=== PATIENT | male | born 1980 | race Caucasian/White ===

== ENCOUNTER 2018-02-10 13:16 | Emergency (ER) | payer OTHER ==
[~2018-02-10] VITALS: Ht 167.6 cm; Wt 81.0 kg
[2018-02-10 13:16] VITALS: BP 119/71
[2018-02-10] MEDS ORDERED: HYDR-971 PO (14:07)
[2018-02-10] MEDS ORDERED: HYDR30CR61 TP (14:07)
--- NOTE | 2018-02-10 14:08 | PHYS DOC ---
Adult General Chief Complaint Chief Complaint: HEMORRHOIDS HPI HPI 38-year-old male presents with a painful hemorrhoid. He states he first noticed it yesterday. He states the pain last night was severe enough where he was not able to sleep. In the past he's had to have these lanced. He denies any other issues at this time.[] Review of Systems Review of Systems Constitutional: Denies fever or chills [] Eyes: Denies change in visual acuity, redness, or eye pain [] HENT: Denies nasal congestion or sore throat [] Respiratory: Denies cough or shortness of breath [] Cardiovascular: No additional information not addressed in HPI [] GI: Per history of present illness[] : Denies dysuria or hematuria [] Musculoskeletal: Denies back pain or joint pain [] Integument: Denies rash or skin lesions [] Neurologic: Denies headache, focal weakness or sensory changes [] Endocrine: Denies polyuria or polydipsia [] All other systems were reviewed and found to be within normal limits, except as documented in this note. Physical Exam Physical Exam Constitutional: Well developed, well nourished, mild to moderate distress, non- toxic appearance. [] HENT: Normocephalic, atraumatic, bilateral external ears normal, oropharynx moist, no oral exudates, nose normal. [] Eyes: PERRLA, EOMI, conjunctiva normal, no discharge. [] Neck: Normal range of motion, no tenderness, supple, no stridor. [] Cardiovascular:Heart rate regular rhythm, no murmur [] Lungs & Thorax: Bilateral breath sounds clear to auscultation [] Abdomen: Bowel sounds normal, soft, no tenderness, no masses, no pulsatile masses. [] Rectal: Large non-thrombosed hemorrhoid external Skin: Warm, dry, no erythema, no rash. [] Back: No tenderness, no CVA tenderness. [] Extremities: No tenderness, no cyanosis, no clubbing, ROM intact, no edema. [] Neurologic: Alert and oriented X 3, normal motor function, normal sensory function, no focal deficits noted. [] Psychologic: Anxious. [] EKG EKG [] Radiology/Procedures Radiology/Procedures [] Course & Med Decision Making Course & Med Decision Making Pertinent Labs and Imaging studies reviewed. (See chart for details) [ED course: Evaluation reveals a 38-year-old male with a nonthrombosed external hemorrhoid. I explained to the patient that given the current state of that hemorrhoid it would not be in his best interest for me to cut that at this time. I have instructed him to follow with a general surgeon who can help him get that taken care of in the meantime we'll start him on Anusol HC and some pain medication.] Dragon Disclaimer Dragon Disclaimer This electronic medical record was generated, in whole or in part, using a voice recognition dictation system. Departure Departure: Impression: Primary Impression: External hemorrhoid Disposition: HOME, SELF-CARE Condition: STABLE Referrals: PALAK MEDLEY (PCP) TACOS VARMA MD Make an appointment with Dr. Varma as he will be able to help you with your hemorrhoid Patient Instructions: Hemorrhoidectomy, Hemorrhoids Additional Instructions: Follow with a general surgeon to have this surgically repaired in the very near future. Scripts Hydrocodone Bit/Acetaminophen (NORCO 5-325 TABLET) 1 Each Tablet 1-2 TAB PO Q4-6HRS for PAIN, #20 TAB Prov: YOANNA RAND DO 02/10/18 Hydrocortisone (ANUSOL-HC) 30 Gm Cream..g. 1 MYAH TP BID, #30 GM 1 Refill Prov: YOANNA RAND DO 02/10/18 YOANNA RAND DO Feb 10, 2018 14:08
== END 2018-02-10 14:22 | disposition home or self-care (01) ==
LOC: ER 13:16
DX: K64.4 Residual hemorrhoidal skin tags (principal)
CPT/HCPCS: 99283

== ENCOUNTER → 2021-01-07 | Outpatient (CLI) | payer OTHER ==
[~2021-01-07] MED LIST: HYDR-3165 PO; HYDR30CR61 TP; IOHEXOL 300 MG/ML 75 ML VIAL. IV ONE
--- NOTE | 2021-01-07 14:33 | RAD ---
EXAMINATION: CT ABDOMEN+PELVIS WO+W (CT ABDOMEN/PELVIS WITHOUT AND WITH IV CONTRAST, INCLUDING EXCRET ORY PHASE IMAGING (CT UROGRAM)) CLINICAL HISTORY: Gross hematuria Hematuria. TECHNIQUE: CT urogram protocol including unenhanced, renal parenchymal phase and excretory phase scott l imaging was obtained following intravenous contrast. 3D post-processing/reconstructions also perfor med. CT Dose Reduction Employed: One or more of the following individualized dose reduction techniques wer e utilized for this examination: 1. Automated exposure control 2. Adjustment of the mA and/or kV ac cording to patient size 3. Use of iterative reconstruction technique. COMPARISON: None FINDINGS: KIDNEYS AND URINARY TRACT: Right: Partially obstructive 8 mm calculus in the proximal right ureter with mild upstream hydrourete ronephrosis. Additional nonobstructive renal calculi measuring up to 4 mm. 1 cm cortical cyst in the mid to lower pole of the right kidney. Normal opacification of the calyces, renal pelvis, and ureter. Left: Tiny nonobstructive calculi. Opacified calyces, renal pelvis, and ureter unremarkable with no e vidence of dilation, filling defect, or stricture. Bladder: No evidence of filling defect, calculus, or wall thickening. ABDOMEN AND PELVIS: Partially visualized heart and lung bases unremarkable. Several small hypodense foci in the liver, too small adequately characterize but likely benign. Gallb ladder, pancreas, spleen, and adrenal glands unremarkable. No bowel dilation or definite wall thickening. Normal appendix. No abdominal aortic or iliac artery aneurysm. Remote bilateral L5 spondylolysis with grade 1 L5-S1 anterolisthesis. IMPRESSION: Partially obstructive 8 mm calculus in the proximal right ureter with hydroureteronephrosis. Multiple additional nonobstructive calculi bilaterally. Electronically signed by: Moses Fuentes DO (01/07/2021 2:30 PM) [facility]
== END ==
LOC: CT 09:10
PROVIDERS: ATTEND Specialist
DX: N21.0 Calculus in bladder (principal); R30.0 Dysuria; N13.30 Unspecified hydronephrosis; M47.817 Spondylosis without myelopathy or radiculopathy, lumbosacral region; M43.17 Spondylolisthesis, lumbosacral region
CPT/HCPCS: 74178; Q9967

== ENCOUNTER → 2021-07-22 | Outpatient (CLI) | payer OTHER ==
[~2021-07-22] MED LIST changes: -IOHEXOL 300 MG/ML 75 ML VIAL. IV ONE
--- NOTE | 2021-07-22 10:12 | RAD ---
CT ABDOMEN+PELVIS WO History: Reason: RIGHT SIDE KIDNEY, LITHOTRIPSY IN JANUARY, PAIN ON RIGHT SIDE / Spl. Instructions: / Hi story: Technique: Noncontrast examination of the abdomen and pelvis. Coronal and sagittal reconstructions we re performed. Exposure: One or more of the following individualized dose reduction techniques were utilized for thi s examination: 1. Automated exposure control 2. Adjustment of the mA and/or kV according to patient size 3. Use of iterative reconstruction technique. Comparison: January 07, 2021 Findings: Lower chest: No consolidation or pleural effusion. Abdomen and pelvis: Small right superior hepatic hypodensity measures 1.2 cm, unchanged. The spleen, adrenal glands, pancreas and gallbladder are unremarkable. No biliary ductal dilatation. Bilateral nonobstructing intrarenal calculi. Largest on the right measures 7 mm and largest on the le ft measures 4 mm. No hydronephrosis. No ureteral or urinary bladder calculus. Decompressed urinary bl adder. Right proximal ureteral calculus is no longer identified. Small right medial renal cyst measures 1.2 cm, unchanged. Mild colonic diverticulosis. Normal appendi x. No evidence of bowel obstruction. No pathologic lymphadenopathy. No ascites. Small fat-containing umbilical hernia. Bones: Grade 1 anterolisthesis L5 on S1 due to bilateral L5 pars defects. Impression: 1. No obstructing urolithiasis. 2. Bilateral nonobstructing intrarenal calculi, overall increased compared to prior. 3. Small right hepatic hypodensity, may represent hemangioma in the absence of concern for malignanc y. Electronically signed by: Keyshawn Johnson DO (07/22/2021 10:10 AM) [facility]
== END ==
LOC: CT 09:07
PROVIDERS: ATTEND Specialist
DX: K57.30 Diverticulosis of large intestine without perforation or abscess without bleeding (principal); N20.0 Calculus of kidney; N28.1 Cyst of kidney, acquired; K42.9 Umbilical hernia without obstruction or gangrene
CPT/HCPCS: 74176